=== PATIENT | male | born 1935 | race Caucasian/White ===

== ENCOUNTER → 2016-07-27 | Outpatient (CLI) | payer OTHER ==
[~2016-07-27] MED LIST: ACID REDUCER150 MG PO; ALBUTEROL17 GM INH; ALPRAZOLAM ODT0.5 MG PO; ASPIR-TRIN325 MG PO; COUMADIN5 MG PO; DOXYCYCLINE HYC20 MG PO; HYDROCODON-ACE1 EAC7 PO; LEVOXYL0.137 MG PO; MULTI VITAMIN1 EACH PO; PROBIOTIC COMP1 EACH PO; ZYLOPRIM100 MG PO
[2016-07-27 12:39] LABS: HEMATOCRIT 37.5 % (38.0-50.0); HEMOGLOBIN 11.7 gm/dL (13.0-16.0); MEAN CELL VOLUME 88.9 FL (83-96); MEAN CORPUSCULAR HEMOGLOBIN 27.8 PG (28-34); MEAN CORPUSCULAR HGB CONC 31.3 g/dL (30-36); MEAN PLATELET VOLUME 8.1 FL (6.5-11.5); RED BLOOD COUNT 4.22 X10e (3.90-5.60); RED CELL DISTRIBUTION WIDTH 17.6 % (11.0-15.5); WHITE BLOOD COUNT 7.8 X10e3 (4.0-10.5)
[2016-07-27 13:18] LABS: BUN/CREATININE RATIO 24.37; CALCIUM SERUM 7.2 mg/dL (8.4-10.2); CREATININE SERUM 1.6 mg/dL (0.6-1.4); GLOM FILT RATE Estimated 40.1 mL/min (>60); POTASSIUM 4.4 mmol/L (3.5-5.1)
== END | disposition home or self-care (01) ==
LOC: CAMB 10:21
PROVIDERS: Orthopaedic Surgery
DX: Z01.812 Encounter for preprocedural laboratory examination (principal); S91.109A Unspecified open wound of unspecified toe(s) without damage to nail, initial encounter
CPT/HCPCS: 36415; 80048; 85027

== ENCOUNTER → 2016-07-31 | Day surgery (SDC) | payer OTHER ==
--- NOTE | ~2016-07-31 | OR ---
Unit #: [id number] #: [id number] Patient: RANJIT CAMARGO [id number] [address] [place], [place] [address] [id number] O MR#: [id number] NAME: RANJIT CAMARGO ROOM: Date of Procedure: 07/31/2016 Admission Date: 07/31/2016 Surgeon: Mony Montalvo M.D. : 1935 Attending Physician: Mony Montalvo M.D. Referring Physician: Mony Montalvo M.D. Primary Care Physician: Alexis Clay M.D. OPERATIVE REPORT PREOPERATIVE DIAGNOSIS Right second toe osteomyelitis. POSTOPERATIVE DIAGNOSIS Right second toe osteomyelitis. PROCEDURE PERFORMED Right second toe amputation through metatarsophalangeal joint (55819). ASSISTANTS Kerrie and Jayla. ANESTHESIA IV sedation and metatarsal block. INDICATIONS FOR SURGERY The patient is an 81-year-old male with neuropathy and claw toes, who underwent recent partial calcanectomy. He was walking with his ankle-foot orthosis in his shoe, which pushed his toe up against the top of his shoe, which caused an ulcer. The ulcer now has penetrated through the skin and he has an open proximal interphalangeal joint with obvious infection. The patient is therefore to undergo right second toe amputation because of ongoing osteomyelitis and an open joint. DESCRIPTION OF PROCEDURE The patient was taken to the operating room and placed in supine position. An IV sedation was utilized. A right second metatarsal block was performed to the toe. The second toe was identified as the correct operative extremity. The right leg was prepped and draped in the usual sterile fashion. The IV antibiotic protocol was followed. The foot was exsanguinated with an Esmarch bandage, which was left wrapped around the ankle to act as a tourniquet. Dorsal and plantar fish-mouth incisions were made at the base of the second toe. Subcutaneous tissue was carefully divided. The toe was disarticulated at the metatarsophalangeal joint by dividing the collateral ligaments, extensor tendons, and flexor tendons. The toe was sent to pathology for examination. Aerobic and anaerobic cultures were taken. The wound was then copiously irrigated. Subcutaneous tissue was closed with 3-0 Vicryl and the skin was closed with 3-0 nylon horizontal mattress sutures. Xeroform gauze dressing, sponges, Webril, Leno wrap, and postoperative shoe were placed. The patient was then transported to the Unit #: [id number] #: [id number] Patient: [facility] recovery room in stable condition. ESTIMATED BLOOD LOSS Minimal. COMPLICATIONS None. SPECIMENS Right foot cultures and right second toe. Dictated by.Charlotte Villa/juliet TD: 08/01/2016 01:23 JOB #: [id number] OPERATIVE REPORT Page 1 of 1 X Warner Montalvo MD X PROCEDURE OPERATIVE NOTE
--- NOTE | ~2016-07-31 | HP ---
Unit #: [id number] #: [id number] Patient: RANJIT CAMARGO [id number] [address] [address] [id number] O MR#: [id number] NAME: RANJIT CAMARGO ROOM: Age: 81 Sex: M Admission Date: 07/31/2016 : 1935 Attending Physician: Mony Montalvo M.D. Referring Physician: Mony Montalvo M.D. Primary Care Physician: Alexis Clay M.D. HISTORY AND PHYSICAL CHIEF COMPLAINT Right second toe infection. HISTORY OF PRESENT ILLNESS The patient is an 81-year-old male with multiple medical problems to include peripheral vascular disease, COPD and tobacco abuse who has undergone right partial calcanectomy for a nonhealing plantar heel wound. This procedure was performed 3 months ago. The patient was then placed in ankle-foot orthosis. Unfortunately, because of his underlying neuropathy, his shoe rubbed on the dorsal aspect of his second toe, and he developed a second toe wound over his hammer toe. He now has a non-healing dorsal wound over the second toe proximal interphalangeal joint with exposed bone. He is, therefore, to undergo second toe amputation. Arterial Dopplers in April 2016 show a right ankle-brachial index of 1.16 with decreased waveforms. PAST MEDICAL HISTORY Arthritis, asthma, atrial fibrillation, COPD, Crohn disease, COPD, heart valve replacement, hypothyroidism, myocardial infarction, prostate cancer, history of stroke, thyroid cancer, neuropathy. HOME MEDICATIONS Allopurinol, alprazolam, aspirin, Coumadin, hydrocodone, levothyroxine, multivitamin, ranitidine, Ventolin inhaler. ALLERGIES Atarax. PAST SURGICAL HISTORY Artificial urinary sphincter, colonoscopy, prostate surgery, cholecystectomy, ankle fusion (left), open heart surgery, right partial calcanectomy, thyroidectomy. SOCIAL HISTORY The patient is a social drinker. He is a former smoker. He is . FAMILY HISTORY Unremarkable. PHYSICAL EXAMINATION GENERAL: This is an elderly male in no acute distress. HEENT: Pharynx is clear. NECK: The neck is supple without masses. HEART: Heart exam reveals a regular sinus rhythm without murmurs or Unit #: [id number] #: [id number] Patient: RANJIT CAMARGO. LUNGS: The lungs are clear. ABDOMEN: The abdomen is soft and nontender without masses or organomegaly. EXTREMITIES: Evaluation of the right foot shows an open wound over the dorsal aspect of the second toe proximal interphalangeal joint. This extends into the joint itself. Dorsalis pedis and posterior tibial pulses are not palpated. Sensation is decreased in a global distribution. ADMITTING DIAGNOSIS Right second toe open proximal interphalangeal joint with underlying osteomyelitis. PLAN The patient will undergo right second toe amputation. This procedure was described in detail, along with the risks of bleeding, infection, nerve damage, the need for further surgery in the future, prolonged recovery time, delayed healing, higher level amputation. He understands the above risks and agrees to proceed. Dictated by Charlotte Winslow/lei TD: 07/30/2016 09:32 JOB #: [id number] HISTORY AND PHYSICAL Page 1 of 1 X Warner Montalvo MD X HISTORY AND PHYSICAL
[2016-07-31 07:17] LABS: INR 1.3; PROTHROMBIN TIME (PATIENT) 13.6 SECONDS (9.6-11.5)
== END | disposition home or self-care (01) ==
LOC: CSUR 06:00
PROVIDERS: Orthopaedic Surgery
DX: M86.8X7 Other osteomyelitis, ankle and foot (principal); Z87.891 Personal history of nicotine dependence; J44.9 Chronic obstructive pulmonary disease, unspecified; Z95.2 Presence of prosthetic heart valve; Z79.01 Long term (current) use of anticoagulants; I25.2 Old myocardial infarction; G62.9 Polyneuropathy, unspecified; Z86.73 Personal history of transient ischemic attack (TIA), and cerebral infarction without residual deficits; Z85.46 Personal history of malignant neoplasm of prostate
CPT/HCPCS: 85610; 87070; 87075; 87205; 88305; 88311; J0690; J3010; J3370